=== PATIENT | male | born 1960 | race Caucasian/White ===

== ENCOUNTER 2022-01-11 20:51 | Emergency (ER) | payer SELFPAY ==
[~2022-01-11] VITALS: Ht 188 cm; Wt 87.0 kg
[2022-01-11] MEDS ORDERED: ACETAMINOPHEN 325MG TABLET PO ONE (22:45)
[2022-01-11] MEDS ORDERED: BACITRACIN ZINC OINT UDPKT TOP ONE (22:45)
[2022-01-11] MEDS ORDERED: TETANUS, DIPHTHERIA, PERTUSSIS VAC/PF 0.5ML (>10YR OLD) IM ONE (22:45)
[2022-01-11] MEDS ORDERED: TOPUD MT (23:52)
[2022-01-12 00:21] VITALS: BP 186/87
== END 2022-01-12 00:42 | disposition home or self-care (01) ==
LOC: ER 20:51
DX: S80.212A Abrasion, left knee, initial encounter (principal); I10 Essential (primary) hypertension; Z88.0 Allergy status to penicillin; W10.8XXA Fall (on) (from) other stairs and steps, initial encounter; Y93.89 Activity, other specified; Y92.018 Other place in single-family (private) house as the place of occurrence of the external cause
CPT/HCPCS: 73590; 90471; 90715; 99283